=== PATIENT | male | born 1990 | race Caucasian/White ===

== ENCOUNTER 2017-10-01 20:10 | Emergency (ER) | payer OTHER ==
[2017-10-02 01:08] LABS: HIV (1/2) Antibody/Antigen Non-Reactive (NonReactive); HIV 1/2 INDEX 0.16 S/CO (<1.00); Hep C IgG Ab Non-Reactive (NonReactive)
[2017-10-02 01:53] LABS: Hep B Surf AB Reactive (NonReactive)
[2017-10-02 01:54] LABS: HBSAB Concentration 25.94 mIU/mL
== END 2017-10-01 20:34 | disposition home or self-care (01) ==
LOC: ERS 20:10
DX: Z77.21 Contact with and (suspected) exposure to potentially hazardous body fluids (principal)
CPT/HCPCS: 36415; 86706; 86803; 87389; 99283

== ENCOUNTER 2018-06-12 20:36 | Emergency (ER) | payer OTHER ==
[2018-06-12] MEDS ORDERED: CEFAZOLIN 2 GM/50 ML BAG ONE (21:13)
[2018-06-12] MEDS ORDERED: Ketorolac Tromethamine 30 MG/ML VIAL ONE (21:13)
[2018-06-12] MEDS ORDERED: Bupivacaine 0.25% 10 ML VIAL ONE (21:14)
--- NOTE | 2018-06-12 21:23 | RAD ---
THREE VIEWS LEFT HAND: 06/12/18 HISTORY: Right hand caught in garage door mechanism. Bleeding. FINDINGS: There is a comminuted fracture involving the distal aspect of the shaft of the middle metatarsal with slight separation of the fracture fragments. There is overlying soft tissue defect likely related to laceration. There is subcutaneous emphysema also seen in the hand predominantly at the level of the fracture. No additional fracture or dislocation is seen. IMPRESSION: Mildly comminuted fracture involving the distal aspect of the left middle metatarsal with evidence of laceration and soft tissue defect as well as subcutaneous soft tissue swelling dorsal aspect of the hand. POS: [facility]
[2018-06-12] MEDS ORDERED: Morphine 4 MG/ML VIAL ONE (21:26)
[2018-06-12] MEDS ORDERED: Ondansetron PF 4 MG/2 ML Vial ONE (21:26)
[2018-06-12] MEDS ORDERED: Lidocaine 1% w/Epinephrine 1:100K 20 ML VIAL ONE (21:41)
--- NOTE | 2018-06-13 04:16 | OP ---
DATE OF PROCEDURE: 06/12/2018 EMERGENCY ROOM AND PROCEDURE NOTE HISTORY OF PRESENT ILLNESS: Mr. Li is a 27-year-old right-handed male who was working on a garage door, the spring in a garage door spun and lacerated the dorsum of the left hand. 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 X-rays of the left hand were obtained, which showed an oblique fracture of the distal shaft of the 3rd metacarpal of the left hand. The patient has good sensation in all of his digits. He has some weakness with extension of the left middle finger. PAST MEDICAL HISTORY: Medical illnesses are none. ALLERGIES: PENICILLIN. MEDICATIONS: The patient was given antibiotics prior to my arrival. PHYSICAL EXAMINATION: LEFT HAND: The patient has a somewhat stellate complex laceration over the dorsum of the left hand. The dorsum of the extensor tendon to the middle finger has some injury, but he has the majority of the extensor tendon still intact, well over 80% of the extensor tendon is intact. The patient is able to actively extend all of his digits. The middle finger is somewhat weaker and has an approximately 10 degree lag at the MCP joint. PROCEDURE NOTE: The wound was infiltrated with 1% lidocaine with epinephrine and 0.25% Marcaine. The wound was then sterilely prepped and then draped. The wound was then cleansed with Betadine and then with sterile saline. The extensor tendons were noted to be intact. Some superficial damage on the dorsum of the extensor tendon to the middle finger. The wound was then closed using 3-0 Rapide with several interrupted simple sutures and some running horizontal mattress sutures. The skin laceration was well approximated. Sterile dressing was applied. The patient was placed in a volar Ortho-glass splint with the MCP joints flexed approximately 40 degrees, PIP and DIP joints in extension and the wrist in 20 degrees of extension. The patient had a good capillary refill after the procedure and after the splint was applied in all of his digits. DISCHARGE MEDICATIONS: 1. Bactrim DS one p.o. b.i.d. for five days, #10. 2. Tylenol No. 4 one every 6 hours as needed for pain, #40. DISCHARGE INSTRUCTIONS: Follow up in my office in one week. A note was written stating the patient may return to light duty with no use of the left hand. Job ID: [id number]
== END 2018-06-12 22:50 | disposition home or self-care (01) ==
LOC: ERS 20:36
DX: S62.333A Displaced fracture of neck of third metacarpal bone, left hand, initial encounter for closed fracture (principal); S61.412A Laceration without foreign body of left hand, initial encounter; F17.220 Nicotine dependence, chewing tobacco, uncomplicated; W22.8XXA Striking against or struck by other objects, initial encounter
CPT/HCPCS: 96361; 96365; 96375; J1885; J2001; J2270; J2405; S0020

== ENCOUNTER 2019-04-22 09:10 | Emergency (ER) | payer OTHER ==
[2019-04-22 10:19] LABS: HIV (1/2) Antibody/Antigen Non-Reactive (NonReactive); HIV 1/2 INDEX 0.12 S/CO (<1.00); Hep C IgG Ab Non-Reactive (NonReactive); Hep C Index 0.17 S/CO (0-0.79)
[2019-04-22 11:17] LABS: Hep B Surf AB Reactive (NonReactive)
[2019-04-22 11:19] LABS: HBSAB Concentration 23.77 mIU/mL
== END 2019-04-22 09:50 | disposition home or self-care (01) ==
LOC: ERS 09:10
DX: Z57.8 Occupational exposure to other risk factors (principal); Z87.891 Personal history of nicotine dependence
CPT/HCPCS: 36415; 86706; 86803; 87389; 99283

== ENCOUNTER 2021-02-03 10:24 | Emergency (ER) | payer OTHER, BC ==
[2021-02-03] MEDS ORDERED: Morphine 4 MG/ML VIAL ONE (11:34)
[2021-02-03] MEDS ORDERED: Ondansetron PF 4 MG/2 ML Vial ONE (11:34)
[2021-02-03 12:10] LABS: #Lymphocytes 1.5 thou/uL (1.20-3.40); #Monocytes 0.7 thou/uL (0.11-0.59); #Neutrophils 9.1 thou/uL (1.40-6.50); %Basophils 0.3 % (0.0-1.0); %Eosinophils 0.1 % (0.0-10.0); %Lymphocytes 13.5 % (21.0-51.0); %Monocytes 5.7 % (0.0-10.0); %Neutrophils 80.4 % (42.0-75.0); Hemoglobin 16.5 g/dL (14.0-18.0); Mean Corpuscular HGB CONC 34.5 g/dL (32.0-36.0); Mean Corpuscular Hemoglobin 32.1 pg (27.0-31.0); Mean Corpuscular Volume 93.3 fL (78.0-98.0); Mean Platelet Volume 8.4 fL (7.4-10.4); Platelet Count 202 thou/uL (130-400); RBC Distribution Width 11.2 % (11.5-14.5); Red Blood Cell (RBC) Count 5.13 mill/uL (4.70-6.10); White Blood Cell (WBC) Count 11.3 thou/uL (4.8-10.8)
[2021-02-03] MEDS ORDERED: Iopamidol-370 76% 500 ML 1 ML ONE (12:28)
[2021-02-03 12:33] LABS: ALT (SGPT) 40 U/L (8-55); AST (SGOT) 35 U/L (5-34); Albumin 4.6 g/dL (3.5-5.0); Alkaline Phosphatase 81 U/L (40-110); Anion Gap 14 mmol/L (10-20); BUN (Urea Nitrogen) 9 mg/dL (8.9-20.6); Bilirubin, Total 0.6 mg/dL (0.2-1.2); Calc. Creatinine Clearance 0 mL/min (70-130); Calcium 9.6 mg/dL (7.8-10.44); Carbon Dioxide 26 mmol/L (22-29); Chloride 105 mmol/L (98-107); Glucose 88 mg/dL (70-105); Potassium 4.3 mmol/L (3.5-5.1); Protein, Total 7.6 g/dL (6.0-8.3); Sodium 141 mmol/L (136-145)
[2021-02-03] MEDS ORDERED: HYDROcodone/Acetaminophen 7.5/325 mg Tablet ONE (13:14)
== END 2021-02-03 13:23 | disposition home or self-care (01) ==
LOC: ERS 10:24
DX: S42.021A Displaced fracture of shaft of right clavicle, initial encounter for closed fracture (principal); S40.211A Abrasion of right shoulder, initial encounter; F17.220 Nicotine dependence, chewing tobacco, uncomplicated; V89.2XXA Person injured in unspecified motor-vehicle accident, traffic, initial encounter
CPT/HCPCS: 71260; 74177; 80053; 85025; 96374; 96375; J2270; J2405; Q9967